=== PATIENT | male | born 1975 | race Caucasian/White ===

== ENCOUNTER 2017-01-16 10:35 | Emergency (ER) | payer OTHER ==
--- NOTE | ~2017-01-16 | EKG ---
PATIENT: JASS JOHNSON UNIT #: [id number] Ventricular Rate: 84 BPM Atrial Rate: 84 BPM P-R Interval: 108 ms QRS Duration: 88 ms Q-T Interval: 362 ms QTC Calculation(Bezet): 427 ms P Lockney: 40 degrees Calculated R Lockney: 38 degrees Calculated T Lockney: 19 degrees Diagnosis Line: Sinus rhythm with short RI Diagnosis Line: Otherwise normal ECG Diagnosis Line: When compared with ECG of 20-MAR-2016 22:54, Diagnosis Line: No significant change was found Diagnosis Line: Confirmed by TEMO STEVENS MD ([id number]) on 01/16/2017 Diagnosis Line: 7:23:24 PM INTERPRETING MD: HILDA HUFFMAN
--- NOTE | ~2017-01-16 | CR72 ---
[facility] A Service of [facility] & [facility] RADIOLOGY TEXT RESULTS PATIENT: JASS JOHNSON LOCATION: [facility] : [birth year] UNIT #: [id number] AGE: [address]: Kory Lindsay MD SEX: M ORDER DR: [id number] [facility] [address] [place], [place] [address] [id number] E MR#: [id number] Acc #: [id number] NAME: JASS JOHNSON. : 1975 SEX: M STUDY DATE/TIME: 01/16/2017 10:10 UNIT: [facility] ROOM: STUDY DESCRIPTION: CR Chest Single View Portable Attending Physician: Kory Lindsay M.D. Ordering Physician: Kory Lindsay M.D. Primary Care Physician: Mike Albright M.D. MEDICAL IMAGING REPORT This report is preliminary unless electronic signature is present EXAM Chest portable 01/26/2017 1010 hours CLINICAL HISTORY 41-year-old complaining of fever, weakness and left shoulder pain for 2 days. Patient fell on 01/15/2017. COMPARISON 03/07/2016 FINDINGS Portable upright chest demonstrates lower lung volumes than on the prior exam. The cardiac, mediastinal and hilar contours are within normal limits. The lungs are clear. There is no pleural effusion, pneumothorax, or fracture seen. The shoulder is not included in the field of view. IMPRESSION 1. No acute cardiopulmonary findings. 2. The left shoulder is not included in the field of view. Dictated by... Shamika Mann M.D. THIS IS AN ELECTRONICALLY VERIFIED REPORT Shamika Mann M.D. at 01/16/2017 2:30 PM SHANNA/marisa TD: 01/16/2017 11:18 JOB #: [id number] MEDICAL IMAGING REPORT Page 1 of 1 COPY
--- NOTE | ~2017-01-16 | CR229 ---
[facility] A Service of [facility] & [facility] RADIOLOGY TEXT RESULTS PATIENT: JASS JOHNSON LOCATION: [facility] : 77 UNIT #: [id number] AGE: [address]: Kory Lindsay MD SEX: M ORDER DR: [id number] [facility] [address] [place], [place] [address] [id number] P MR#: [id number] Acc #: [id number] NAME: JASS JOHNSON. : 1975 SEX: M STUDY DATE/TIME: 01/16/2017 09:16 UNIT: [facility] ROOM: STUDY DESCRIPTION: CR Shoulder Min 2 View Lt Attending Physician: Kory Lindsay M.D. Ordering Physician: Ed Doctor [id number] [facility] Primary Care Physician: Mike Albright M.D. MEDICAL IMAGING REPORT This report is preliminary unless electronic signature is present EXAM Left shoulder 3 views, 01/16/2017 09:16 hours HISTORY Patient fell yesterday complaining of left shoulder pain since fall. COMPARISON 09/21/2006 FINDINGS AP views in internal and external rotation and a scapula Y-view demonstrate no fracture or dislocation. There is trace spurring at the acromioclavicular joint new from 09/21/2006. Upper ribs are intact. IMPRESSION No acute fracture or dislocation. There is trace spurring at the acromioclavicular joint, new from 09/21/2006. Dictated by... Shamika Mann M.D. THIS IS AN ELECTRONICALLY VERIFIED REPORT Shamika Mann M.D. at 01/16/2017 2:30 PM Suman TD: 01/16/2017 10:02 JOB #: [id number] MEDICAL IMAGING REPORT Page 1 of 1 COPY
[~2017-01-16 10:35] MED LIST: ALBUTEROL17 GM INH; AMOXICILLIN500 M1 PO; AUGMENTIN PO; CIPRO PO; FLEXERIL PO; HYDROCODON-ACE1 EAC9 PO; IBUPROFEN600 MG PO; IBUPROFEN800 MG PO; LORTAB 10-3251 EACH PO; LORTAB 5/500 TA1 TA1 PO; LORTAB 7.5-5001 TAB PO; NO MEDICATIONS; PERCOCET5/325 PO; PHENERGAN PO; PHENERGAN25 MG PO; PREDNISONE PO; ROBAXIN PO; ROBAXIN500 MG PO; TRIMOX500 M1 PO; ULTRAM PO; VICODIN 5/1 TAB 5/50 PO; VOLTAREN75 MG PO; ZOFRAN ODT4 MG PO
[2017-01-16 10:42] LABS: POC - CKMB <1.0 ng/mL (0.0-7.9); POC - TROPONIN <0.05 ng/mL (<=0.05)
[2017-01-16 10:44] LABS: BASOPHIL% 0.4 % (0-2.5); EOSINOPHIL% 0.3 % (0.0-7.0); HEMOGLOBIN 14.9 gm/dL (13.0-16.0); LYMPHOCYTE# 1.2 X10e3 (1.0-3.5); LYMPHOCYTE% 13.9 % (17.0-45.0); MEAN CELL VOLUME 83.9 FL (83-96); MEAN CORPUSCULAR HEMOGLOBIN 28.3 PG (28-34); MEAN CORPUSCULAR HGB CONC 33.8 g/dL (30-36); MEAN PLATELET VOLUME 8.3 FL (6.5-11.5); MONOCYTE# 1.1 X10e3 (0-1.0); MONOCYTE% 12.5 % (3.0-12.0); NEUTROPHIL# 6.3 X10e3 (1.5-7.1); NEUTROPHIL% 72.9 % (40-75); PLATELET COUNT 223 X10e3 (140-420); RED BLOOD COUNT 5.25 X10e (3.90-5.60); RED CELL DISTRIBUTION WIDTH 17.4 % (11.0-15.5); WHITE BLOOD COUNT 8.6 X10e3 (4.0-10.5)
[2017-01-16 10:45] LABS: DIFF IND NO
[2017-01-16 10:59] LABS: PARTIAL THROMBOPLASTIN TIME 30.4 SECONDS (23.5-31.3); PROTHROMBIN TIME (PATIENT) 10.7 SECONDS (9.6-11.5)
[2017-01-16 11:14] LABS: ALBUMIN SERUM 3.8 g/dL (3.5-5.0); BILIRUBIN, DIRECT 0.3 mg/dL (0.0-0.2); BILIRUBIN,INDIRECT 0.8 mg/dL (0.0-0.9); BILIRUBIN,TOTAL 1.1 mg/dL (0.2-2.0); BUN/CREATININE RATIO 8.75; CALCIUM SERUM 8.4 mg/dL (8.4-10.2); CREATININE SERUM 0.8 mg/dL (0.6-1.4); GLOM FILT RATE Estimated 111.8 mL/min (>60); POTASSIUM 3.7 mmol/L (3.5-5.1); PROTEIN TOTAL SERUM 7.6 g/dL (6.0-8.3)
[2017-01-16 12:35] LABS: URINE SOURCE CLEAN CATCH
[2017-01-16 12:51] LABS: URINE APPEARANCE CLOUDY; URINE BLOOD NEG (NEG); URINE COLOR DK YELLOW; URINE GLUCOSE NEG (NEG); URINE KETONE 1+ (NEG); URINE LEUKOCYTE ESTERASE TRACE (NEG); URINE NITRATE POS (NEG); URINE PH 5.5 (5-8); URINE PROTEIN TRACE (NEG); URINE SPECIFIC GRAVITY 1.036 (1.003-1.035)
[2017-01-16 12:56] LABS: CULTURE INDICATED? YES; URINE BACTERIA AUWI NEG (NEGATIVE); URINE SQUAMOUS EPITHELIAL CELL OCC /[HPF]
[2017-01-16 13:11] LABS: URINE BILIRUBIN NEG (NEG); URINE MUCUS PRESENT
[2017-01-16 13:12] LABS: URBCS1 AUWI NEG /[HPF] (0-2)
[2017-01-16 13:23] LABS: AMPHETAMINE POS (NEG); BARBITURATES NEG (NEG); BENZODIAZEPINES NEG (NEG); COCAINE NEG (NEG); MARIJUANA NEG (NEG); OPIATES POS (NEG); TRICYCLIC ANTIDEPRESSANTS NEG (NEG); U METHADONE NEG (NEG)
== END 2017-01-16 14:21 | disposition home or self-care (01) ==
LOC: CED 10:35
PROVIDERS: Emergency Medicine
DX: S46.912A Strain of unspecified muscle, fascia and tendon at shoulder and upper arm level, left arm, initial encounter (principal); F19.10 Other psychoactive substance abuse, uncomplicated; X58.XXXA Exposure to other specified factors, initial encounter; Y92.9 Unspecified place or not applicable
CPT/HCPCS: 36415; 71010; 73030; 80048; 80076; 80307; 81003; 82553; 83605; 84484; 85025; 85610; 85730; 87040; 87086; 93005; 96374; 99284; J1885

== ENCOUNTER 2017-06-10 22:43 | Emergency (ER) | payer OTHER ==
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
== END 2017-06-11 03:40 | disposition home or self-care (01) ==
LOC: CED 22:43
DX: T40.1X1A Poisoning by heroin, accidental (unintentional), initial encounter (principal); F17.200 Nicotine dependence, unspecified, uncomplicated; Z90.49 Acquired absence of other specified parts of digestive tract; Z86.19 Personal history of other infectious and parasitic diseases
CPT/HCPCS: 70450; 72125; 82947; 96361; 96374; 96375; 99284; J2310; J2405

== ENCOUNTER 2017-06-27 18:59 | Emergency (ER) | payer OTHER ==
[~2017-06-27] VITALS: Ht 172.7 cm; Wt 76.2 kg
--- NOTE | ~2017-06-27 | CT4 ---
[facility] A Service of [facility] RADIOLOGY TEXT RESULTS PATIENT: JASS JOHNSON LOCATION: [facility] : [birth year] UNIT #: [id number] AGE: [address]: Devin Zepeda MD SEX: M ORDER DR: [id number] [facility] [address] [place], [place] [address] [id number] E MR#: [id number] Acc #: [id number] NAME: JASS JOHNSON. : 1975 SEX: M STUDY DATE/TIME: 06/27/2017 20:47 UNIT: [facility] ROOM: STUDY DESCRIPTION: CT Abd and Pelv Wo Cont Attending Physician: Devin Zepeda M.D. Ordering Physician: Devin Zepeda M.D. Primary Care Physician: Mike Albright M.D. MEDICAL IMAGING REPORT This report is preliminary unless electronic signature is present EXAM CT abdomen and pelvis without contrast HISTORY Left-sided flank pain lower back pain for at least [address] abdomen and pelvis 11/10/[address] exam was performed with one or more of the following radiation dose reduction techniques: automatic exposure control, adjustment of mA and/or kV according to patient size, and iterative reconstruction. FINDINGS Axial images performed through the abdomen and pelvis without contrast. Multiplanar reconstructed images were reviewed. ABDOMEN: Lung bases unremarkable except for a small amount of dependent atelectasis. The liver and spleen appear normal. Gallbladder surgically absent. Pancreas, kidneys and adrenal glands unremarkable. Marked fluid distension of the stomach with some gas. This may indicate gastric atony or outlet obstruction. No obstructing lesion is identified. Small bowel and colon unremarkable except for a moderate amount of colonic stool. No focal inflammatory change. No free air or free fluid. PELVIS: Bladder and prostate unremarkable. Osseous structures and soft tissues appear normal. There is a small umbilical hernia containing omental fat only. IMPRESSION Moderate to severe fluid distension of the stomach with some gas. There is also some debris within the stomach. This may represent gastric atony [facility] A Service of [facility] RADIOLOGY TEXT RESULTS PATIENT: JASS JOHNSON [id number] [birth year] UNIT #: [id number] AGE: [address]: Devin Zepeda MD SEX: M ORDER DR: or gastric outlet obstruction though no obstructing mass lesion or focal inflammatory change is identified. No free air. Dictated by... Niki Paz M.D. THIS IS AN ELECTRONICALLY VERIFIED REPORT Niki Paz M.D. at 06/29/2017 10:04 AM Jessica TD: 06/28/2017 22:11 JOB #: [id number] MEDICAL IMAGING REPORT Page 1 of 1 COPY
[2017-06-27 20:54] LABS: BASOPHIL% 0.5 % (0-2.5); EOSINOPHIL# 0.2 X10e3 (0-0.7); EOSINOPHIL% 2.4 % (0.0-7.0); HEMATOCRIT 41.3 % (38.0-50.0); HEMOGLOBIN 14.2 gm/dL (13.0-16.0); LYMPHOCYTE# 2.2 X10e3 (1.0-3.5); LYMPHOCYTE% 34.6 % (17.0-45.0); MEAN CELL VOLUME 84.9 FL (83-96); MEAN CORPUSCULAR HEMOGLOBIN 29.1 PG (28-34); MEAN CORPUSCULAR HGB CONC 34.3 g/dL (30-36); MEAN PLATELET VOLUME 7.9 FL (6.5-11.5); MONOCYTE# 0.9 X10e3 (0-1.0); MONOCYTE% 14.9 % (3.0-12.0); NEUTROPHIL% 47.6 % (40-75); PLATELET COUNT 228 X10e3 (140-420); RED BLOOD COUNT 4.87 X10e (3.90-5.60); WHITE BLOOD COUNT 6.3 X10e3 (4.0-10.5)
[2017-06-27 20:57] LABS: DIFF IND NO
[2017-06-27 21:11] LABS: BILIRUBIN, DIRECT 0.2 mg/dL (0.0-0.2); BILIRUBIN,INDIRECT 0.7 mg/dL (0.0-0.9); BILIRUBIN,TOTAL 0.9 mg/dL (0.2-2.0); CALCIUM SERUM 9.2 mg/dL (8.4-10.2); CREATININE SERUM 1.1 mg/dL (0.6-1.4); PROTEIN TOTAL SERUM 7.8 g/dL (6.0-8.3)
[2017-06-27 22:53] LABS: URINE SOURCE CATH
[2017-06-27 22:56] LABS: URINE APPEARANCE CLEAR; URINE BLOOD NEG (NEG); URINE COLOR DK YELLOW; URINE GLUCOSE NEG (NEG); URINE KETONE TRACE (NEG); URINE LEUKOCYTE ESTERASE TRACE (NEG); URINE NITRATE NEG (NEG); URINE PH 5.5 (5-8); URINE PROTEIN 1+ (NEG)
[2017-06-27 22:58] LABS: URBCS1 AUWI 0-2 /[HPF] (0-2); URINE BACTERIA AUWI NEG (NEGATIVE); URINE SQUAMOUS EPITHELIAL CELL NONE SEEN /[HPF]
[2017-06-27 23:04] LABS: AMPHETAMINE POS (NEG); BARBITURATES NEG (NEG); BENZODIAZEPINES NEG (NEG); COCAINE NEG (NEG); MARIJUANA NEG (NEG); OPIATES POS (NEG); TRICYCLIC ANTIDEPRESSANTS NEG (NEG); U METHADONE NEG (NEG)
[2017-06-27 23:10] LABS: CULTURE INDICATED? NO; URINE BILIRUBIN POS (NEG)
[2017-06-27 23:11] LABS: URINE CRYSTALS CALCIUM OXALATE /[HPF]
== END 2017-06-27 23:26 | disposition home or self-care (01) ==
LOC: CED 18:59
PROVIDERS: Emergency Medicine
DX: M54.5 Low back pain (principal); F31.9 Bipolar disorder, unspecified; F41.9 Anxiety disorder, unspecified; F17.210 Nicotine dependence, cigarettes, uncomplicated; Z90.49 Acquired absence of other specified parts of digestive tract
CPT/HCPCS: 36415; 74176; 80048; 80076; 80307; 81003; 85025; 96374; 99284; J1885